=== PATIENT | female | born 1990 | race Caucasian/White ===

== ENCOUNTER 2016-07-06 19:07 | Emergency (ER) | payer MEDICAID ==
[2016-07-06] MEDS ORDERED: ONDANSETRON HCL INJ/PF 4 MG/2 ML SDV IV ONE (21:37)
[2016-07-06] MEDS ORDERED: NORMAL SALINE 1000 ML 1,000 ML IV ONE (21:38)
[2016-07-06 22:04] LABS: APPEARANCE,URINE SLIGHTLY-CLOUDY; BILIRUBIN,URINE NEGATIVE (NEGATIVE); GLUCOSE, URINE NEGATIVE (NEGATIVE); KETONES,URINE NEGATIVE (NEGATIVE); LEUKOCYTE ESTERASE,URINE TRACE (NEGATIVE); NITRITE,URINE NEGATIVE (NEGATIVE); PROTEIN,URINE NEGATIVE (NEGATIVE); URINE SPECIFIC GRAVITY 1.012; UROBILINOGEN,URINE NEGATIVE mg/dL (<2.0)
[2016-07-06 22:08] LABS: ABSOLUTE BASOPHILS # (AUTO) 0.1 10^3/uL (0.0-0.2); ABSOLUTE EOSINOPHILS # (AUTO) 0.1 10^3/uL (0.0-0.6); ABSOLUTE LYMPHOCYTES (AUTO) 2.6 10^3/uL (0.5-4.7); ABSOLUTE MONOCYTES (AUTO) 0.6 10^3/uL (0.1-1.4); ABSOLUTE NEUT (AUTO) 5.8 10^3/uL (1.7-8.2); BASOPHILS % (AUTO) 0.9 % (0-2); EOSINOPHILS % (AUTO) 1.2 % (0-6); HEMATOCRIT 36.8 % (36.0-47.0); HEMOGLOBIN 12.5 g/dL (12.0-15.5); HGB HCT DIFFERENCE 0.7; LYMPHOCYTES % (AUTO) 27.9 % (13-45); MEAN CORPUSCULAR HGB CONC 33.9 g/dL (32.0-36.0); MEAN CORPUSCULAR VOLUME 86 fl (80-97); MONOCYTES % (AUTO) 6.8 % (3-13); RED CELL DISTRIBUTION WIDTH 12.8 % (11.5-14.0); SEGMENTED NEUTROPHILS % (AUTO) 63.2 % (42-78); WHITE BLOOD COUNT 9.2 10^3/uL (4.0-10.5)
--- NOTE | 2016-07-06 22:13 | ER Document Report ---
ED GI/ - General Mode of Arrival: Ambulatory Information source: Patient TRAVEL OUTSIDE OF THE [place] IN LAST 30 DAYS: No - HPI Patient complains to provider of: Vomiting Onset: Other - 2 weeks ago Timing/Duration: Sudden, Persistent Quality of pain: Sharp - intermittent Context: Location: LLQ, RLQ Vaginal bleeding (Compared to normal period): None Menstrual period history: : 4 Para: 2 Abortions: 1 Associated symptoms: Nausea, Vomiting. denies: Dizzy, Fever <CHERYL MARSH - Last Filed: 07/06/16 22:08> <STEPHEN TRUONG - Last Filed: 07/07/16 00:18> - General Chief Complaint: Nausea/Vomiting Stated Complaint: NAUSEA AND VOMITING EARLY STAGES OF Time Seen by Provider: 07/06/16 21:37 Notes: Patient is a 26-year-old A1 female presenting to the emergency department concerned of persistent nausea and vomiting onset 2 weeks ago. Patient also admits to intermittent sharp lower abdominal pain and occasional shakiness, but denies dizziness, fever, or vaginal bleeding. Patient states that she was told that she is 6-7 weeks based on her last menstrual period (05/20/2016), and has history of one miscarriage in the past. (CHERYL MARSH) - Related Data Allergies/Adverse Reactions: amoxicillin Allergy (Verified 12/13/15 09:18) Past Medical History - General Information source: Patient - Social History Smoking Status: Never Smoker Cigarette use (# per day): No Frequency of alcohol use: None Drug Abuse: None Family History: Reviewed & Not Pertinent Patient has suicidal ideation: No Patient has homicidal ideation: No - Medical History Medical History: Negative Renal/ Medical History: Denies: Hx Peritoneal Dialysis Past Surgical History: Reports: Hx Gynecologic Surgery - Immunizations Hx Diphtheria, Pertussis, Tetanus Vaccination: Yes <CHERYL MARSH - Last Filed: 07/06/16 22:08> Review of Systems - Review of Systems Constitutional: No symptoms reported EENT: No symptoms reported Cardiovascular: No symptoms reported. denies: Dizziness Respiratory: No symptoms reported Gastrointestinal: See HPI, Abdominal pain - low, Nausea, Vomiting Genitourinary: No symptoms reported Female Genitourinary: See HPI, Last menstrual period - 05/20/2016, . denies: Vaginal bleeding Musculoskeletal: No symptoms reported Skin: No symptoms reported Hematologic/Lymphatic: No symptoms reported Neurological/Psychological: No symptoms reported -: Yes All other systems reviewed and negative <CHERYL MARSH - Last Filed: 07/06/16 22:08> Physical Exam <CHERYL MARSH - Last Filed: 07/06/16 22:08> <STEPHEN TRUONG - Last Filed: 07/07/16 00:18> - Vital signs Vitals: Temp Pulse Resp BP Pulse Ox 98.1 F 74 16 107/59 L 100 07/06/16 19:40 07/06/16 19:40 07/06/16 19:40 07/06/16 19:40 07/06/16 19:40 - Notes Notes: GENERAL: Alert, interacts well. No acute distress. HEAD: Normocephalic, atraumatic. EYES: Pupils equal, round, and reactive to light. Extraocular movements intact. ENT: Oral mucosa moist, tongue midline. NECK: Full range of motion. Supple. Trachea midline. LUNGS: Clear to auscultation bilaterally, no wheezes, rales, or rhonchi. No respiratory distress. HEART: Regular rate and rhythm. No murmurs, gallops, or rubs. ABDOMEN: Soft, non-tender. Distended uterus. Bowel sounds present in all 4 quadrants. EXTREMITIES: Moves all 4 extremities spontaneously. No edema. No cyanosis. NEUROLOGICAL: Alert and oriented x3. Normal speech. PSYCH: Normal affect, normal mood. SKIN: Warm, dry, normal turgor. No rashes or lesions noted. (CHERYL MARSH) Course - Laboratory Result Diagrams: 07/06/16 21:55 07/06/16 21:55 <CHERYL MARSH - Last Filed: 07/06/16 22:08> - Laboratory Result Diagrams: 07/06/16 21:55 07/06/16 22:02 <STEPHEN TRUONG - Last Filed: 07/07/16 00:18> - Re-evaluation Re-evalutation: 07/06/16 23:38 CBC unremarkable, test positive, urinalysis shows small blood and trace leukocyte esterase, 3+ bacteria and only 3 squamous epithelial cells, and will treat this with Macrobid. Transvaginal ultrasound shows 8 week 1 day intrauterine single gestation, heart rate is approximately 165 bpm, there is a subchorionic hemorrhage. No evidence of ectopic. Patient is being hydrated with a liter of normal saline, chemistries are pending, patient has been given Zofran for vomiting. CBC unremarkable, CMP shows slightly low CO2 at 20, hCG is positive with a quantitative hCG of 86,483. Urinalysis shows small blood and trace leukocyte esterase. This will be treated with Macrobid. 07/07/16 00:09 (STEPHEN TRUONG) - Vital Signs Vital signs: Temp Pulse Resp BP Pulse Ox 98.0 F 70 20 102/52 L 100 07/06/16 21:40 07/06/16 21:40 07/06/16 21:40 07/06/16 21:40 07/06/16 21:40 - Laboratory Laboratory results interpreted by me: 07/06/16 07/06/16 07/06/16 21:44 21:55 22:02 Chloride 109 H Carbon Dioxide 20 L Total Protein 5.6 L Albumin 3.2 L Serum HCG, Qual POSITIVE H Beta HCG, Quant 84447.00 H Urine Blood SMALL H Ur Leukocyte Esterase TRACE H Discharge <CHERYL MARSH - Last Filed: 07/06/16 22:08> <STEPHEN TRUONG - Last Filed: 07/07/16 00:18> - Discharge Clinical Impression: Nausea and vomiting during , Subchorionic hematoma in first trimester , Mild dehydration Condition: Stable Disposition: HOME, SELF-CARE Additional Instructions: You have a subchorionic hemorrhage, this is some bleeding around the baby. It slightly increases your risk of miscarriage. Do not have sex or put anything in your vagina until you have followed up with your ELECTRICAL APPLIANCE SERVICER. You have a slight urinary tract infection. We are treating this with an antibiotic called Macrobid. For your nausea and vomiting I have prescribed Phenergan which can make you somewhat sleepy as well as Zofran. Please use the Zofran sparingly. Prescriptions: Nitrofurantoin/Nitrofuran Mac [Macrobid 100 mg Capsule] 1 tab PO BID #20 capsule Ondansetron [Zofran Odt 4 mg Tablet] 1 - 2 tab PO Q4H PRN #15 tab.rapdis PRN Reason: For Nausea/Vomiting Promethazine HCl [Phenergan 25 mg Tablet] 25 - 50 mg PO ASDIR PRN #12 tablet PRN Reason: Scribe Attestation: 07/07/16 00:18 I personally performed the services described in the documentation, reviewed and edited the documentation which was dictated to the scribe in my presence, and it accurately records my words and actions. (STEPHEN TRUONG) Scribe Documentation - Scribe Written by Yuliya:: Yuliya Dickerson, 07/06/2016 2208 acting as scribe for :: Amado <CHERYL MARSH - Last Filed: 07/06/16 22:08>
--- NOTE | 2016-07-06 22:42 | RADIOLOGY REPORT (SQ) ---
EXAM DESCRIPTION: U/S OB TRANSVAG W/DOPPLER COMPLETED DATE/TIME: 07/06/2016 10:27 pm REASON FOR STUDY: sharp pains, COMPARISON: None. TECHNIQUE: Transvaginal static and realtime grayscale images acquired of the pelvis. Additional ralph cted spectral and color Doppler images recorded. All images stored on PACs. bHCG: Not available. LIMITATIONS: None. FINDINGS: FETUS: Living intrauterine . EGA: 8 weeks 1 day YOSSI: 02/14/2017 FHR: 165 beats per minute. SUBCHORIONIC BLEED: Yes SIZE OF BLEED: 5 mm UTERUS: No masses. No anomalies. CERVICAL LENGTH: 2.5 cm Closed. RIGHT ADNEXA: 1.4 cm cysts, otherwise Normal ovary with normal vascular flow. No adnexal free fluid. No adnexal masses. LEFT ADNEXA: Normal ovary with normal vascular flow. No adnexal free fluid. No adnexal masses. FREE FLUID: None. OTHER: No other significant finding. IMPRESSION: LIVING INTRAUTERINE . EGA 8 weeks 1 day Trimester of : First - 0 to 13 weeks. TECHNICAL DOCUMENTATION: JOB ID: [id number] [employer]- All Rights Reserved
[2016-07-06 23:20] LABS: ALANINE AMINOTRANSFERASE 22 U/L (9-52); ALBUMIN 3.2 g/dL (3.5-5.0); ALKALINE PHOSPHATASE 43 U/L (38-126); ANION GAP 9 (5-19); ASPARTATE AMINO TRANSFERASE 14 U/L (14-36); BILIRUBIN,DIRECT 0.2 mg/dL (0.0-0.4); BILIRUBIN,TOTAL 0.2 mg/dL (0.2-1.3); BLOOD UREA NITROGEN 12 mg/dL (7-20); CALCIUM 8.4 mg/dL (8.4-10.2); CARBON DIOXIDE 20 mmol/L (22-30); CHLORIDE 109 mmol/L (98-107); CREATININE RESULT 0.61 mg/dL (0.52-1.25); GLUCOSE 89 mg/dL (75-110); POTASSIUM 3.7 mmol/L (3.6-5.0); SODIUM 138.2 mmol/L (137-145); TOTAL PROTEIN 5.6 g/dL (6.3-8.2)
[2016-07-07 02:05] VITALS: BP 119/65
== END 2016-07-07 01:00 | disposition home or self-care (01) ==
LOC: ER 19:07
DX: O21.9 Vomiting of pregnancy, unspecified (principal); O99.281 Endocrine, nutritional and metabolic diseases complicating pregnancy, first trimester; E86.0 Dehydration; O43.891 Other placental disorders, first trimester; O26.891 Other specified pregnancy related conditions, first trimester; Z3A.01 Less than 8 weeks gestation of pregnancy; R10.31 Right lower quadrant pain; R10.32 Left lower quadrant pain; Z88.0 Allergy status to penicillin
CPT/HCPCS: 99284; 96361; 96374; 36415; 84702; 84703; 85025; 80053; 81001; 76817; 93976; J2405; J7030

== ENCOUNTER 2017-01-24 08:51 | Emergency (ER) | payer MEDICAID ==
--- NOTE | 2017-01-24 09:52 | ER Document Report ---
ED Respiratory Problem - General Chief Complaint: Cold Symptoms Stated Complaint: FLU LIKE SYMPTOMS Time Seen by Provider: 01/24/17 09:36 Notes: 26 yo 37 wk female c/o cough.cold symptoms x 3-4 days. no fever. nonproductive cough. pt has OB appointment tomorrow. denies any abdominal pain , vaginal bleeding or related concerns TRAVEL OUTSIDE OF THE [place] IN LAST 30 DAYS: No - HPI Patient complains to provider of: Cough Quality of pain: Achy Pain Level: 3 Context: . denies: Smoker Chest pain/discomfort: Tightness Sputum amount: None Associated symptoms: Chills, Congestion, Cough, Hoarseness, PND Similar symptoms previously: Yes - Related Data Allergies/Adverse Reactions: amoxicillin Allergy (Verified 01/24/17 08:54) Past Medical History - General Information source: Patient - Social History Smoking Status: Never Smoker Chew tobacco use (# tins/day): No Frequency of alcohol use: None Drug Abuse: None Lives with: Family Family History: Reviewed & Not Pertinent Patient has suicidal ideation: No Patient has homicidal ideation: No - Medical History Medical History: Negative Renal/ Medical History: Denies: Hx Peritoneal Dialysis Past Surgical History: Reports: Hx Gynecologic Surgery - Immunizations Hx Diphtheria, Pertussis, Tetanus Vaccination: Yes Review of Systems - Review of Systems Constitutional: No symptoms reported EENT: No symptoms reported Cardiovascular: No symptoms reported Respiratory: See HPI Gastrointestinal: No symptoms reported Genitourinary: No symptoms reported Female Genitourinary: No symptoms reported Musculoskeletal: No symptoms reported Skin: No symptoms reported Hematologic/Lymphatic: No symptoms reported Neurological/Psychological: No symptoms reported Physical Exam - Vital signs Vitals: Temp Pulse Resp BP Pulse Ox 98.6 F 102 H 14 125/74 98 01/24/17 08:56 01/24/17 08:56 01/24/17 08:56 01/24/17 08:56 01/24/17 08:56 Interpretation: Normal - General General appearance: Appears well, Alert In distress: None - HEENT Head: Normocephalic, Atraumatic Eyes: Normal Conjunctiva: Normal Pupils: PERRL Tympanic membrane: Other - dull bilat Mucous membranes: Normal, Moist Pharynx: Normal Neck: Supple. No: Lymphadenopathy - Respiratory Respiratory status: No respiratory distress Chest status: Nontender Breath sounds: Normal Chest palpation: Normal - Cardiovascular Rhythm: Regular Heart sounds: Normal auscultation Murmur: No - Abdominal Inspection: Normal Distension: No distension Bowel sounds: Normal Tenderness: Nontender Organomegaly: No organomegaly - Back Back: Normal, Nontender - Extremities General upper extremity: Normal inspection, Nontender, Normal color, Normal ROM , Normal temperature General lower extremity: Normal inspection, Nontender, Normal color, Normal ROM , Normal temperature, Normal weight bearing. No: Dot's sign - Neurological Neuro grossly intact: Yes Cognition: Normal Orientation: AAOx4 Marilyn Coma Scale Eye Opening: Spontaneous Marilyn Coma Scale Verbal: Oriented [place] Coma Scale Motor: Obeys Commands [place] Coma Scale Total: 15 Speech: Normal Motor strength normal: LUE, RUE, LLE, RLE Sensory: Normal - Psychological Associated symptoms: Normal affect, Normal mood - Skin Skin Temperature: Warm Skin Moisture: Dry Skin Color: Normal Course - Re-evaluation Re-evalutation: 01/24/17 09:55 I estimate there is low risk for acute coronary syndrome, respiratory failure, sepsis or meningitis. discharge home is reasonable. home care, f/u with OB, ED return precautions discussed. pt is agreeable with plan and stable for discharge - Vital Signs Vital signs: Temp Pulse Resp BP Pulse Ox 98.6 F 102 H 14 125/74 98 01/24/17 08:56 01/24/17 08:56 01/24/17 08:56 01/24/17 08:56 01/24/17 08:56 Discharge - Discharge Clinical Impression: URI (upper respiratory infection) Qualifiers: URI type: unspecified viral URI Qualified Code(s): J06.9 - Acute upper respiratory infection, unspecified; B97.89 - Other viral agents as the cause of diseases classified elsewhere; B97.89 - Other viral agents as the cause of diseases classified elsewhere Qualifiers: Weeks of gestation: 36 weeks Qualified Code(s): Z3A.36 - 36 weeks gestation of Condition: Stable Disposition: HOME, SELF-CARE Instructions: Acetaminophen, Upper Respiratory Illness ([facility]) Additional Instructions: Coug suppressant as prescribed may take OTC Robitussin or Robitussing DM rest and hydrate follow up with OB tomorrow as scheduled Prescriptions: Benzonatate [Tessalon Perles 100 mg Capsule] 200 mg PO Q8HP PRN #40 capsule PRN Reason:
[2017-01-24 10:06] VITALS: BP 111/66
== END 2017-01-24 10:06 | disposition home or self-care (01) ==
LOC: ER 08:51
DX: J06.9 Acute upper respiratory infection, unspecified (principal); B97.89 Other viral agents as the cause of diseases classified elsewhere; R05 Cough; Z3A.36 36 weeks gestation of pregnancy
CPT/HCPCS: 99283

== ENCOUNTER 2017-09-20 09:32 | Emergency (ER) | payer MEDICAID ==
[2017-09-20] MEDS ORDERED: IBUPROFEN 800 MG TABLET PO PRN (10:08)
[2017-09-20 10:52] LABS: APPEARANCE,URINE SLIGHTLY-CLOUDY; BILIRUBIN,URINE NEGATIVE (NEGATIVE); COLOR,URINE YELLOW; GLUCOSE, URINE NEGATIVE (NEGATIVE); KETONES,URINE NEGATIVE (NEGATIVE); LEUKOCYTE ESTERASE,URINE SMALL (NEGATIVE); NITRITE,URINE NEGATIVE (NEGATIVE); PROTEIN,URINE NEGATIVE (NEGATIVE); URINE SPECIFIC GRAVITY 1.019; UROBILINOGEN,URINE NEGATIVE mg/dL (<2.0)
[2017-09-20] MEDS ORDERED: KETOROLAC TROMETHAMINE INJ/PF 30 MG/1 ML SDV IV ONE (12:14)
[2017-09-20] MEDS ORDERED: FENTANYL CITRATE INJ/PF 100 MCG/2 ML AMPUL IV ONE ×2 (12:14→14:14)
--- NOTE | 2017-09-20 12:16 | ER Document Report ---
ED GI/ - General Chief Complaint: Flank Pain Stated Complaint: FLANK PAIN Time Seen by Provider: 09/20/17 10:02 Notes: 27-year-old female patient emergency department chief complaint right lower quadrant pain. Patient states she did not feel good last night. Today she began to have some pain in the right lower quadrant radiating to her right flank. Patient thinks that she has a UTI. Has had this happen before and was diagnosed with a kidney infection. Patient is 7 months . Has had a recent pelvic exam performed by her POLICE WORKER. Same sexual partner. No vaginal complaints. No prior history of ovarian cyst. Pain is intense. Throbbing in the right lower quadrant. TRAVEL OUTSIDE OF THE [place] IN LAST 30 DAYS: No - HPI Patient complains to provider of: Abdominal pain. No: Diarrhea, Hematuria, Pelvic pain, , Urinary retention, Vaginal bleeding, Vaginal discharge, Vaginal pain, Vomiting Onset: Yesterday Timing/Duration: Gradual, Worse Quality of pain: Achy, Throbbing Severity at maximum: Moderate Severity in ED: Moderate Pain Level: 3 - Related Data Allergies/Adverse Reactions: amoxicillin Allergy (Verified 09/20/17 09:43) Home Medications: Wellbutrin Past Medical History - General Information source: Patient - Social History Smoking Status: Never Smoker Chew tobacco use (# tins/day): No Frequency of alcohol use: None Drug Abuse: None Lives with: Spouse/Significant other Family History: Reviewed & Not Pertinent Patient has suicidal ideation: No Patient has homicidal ideation: No Renal/ Medical History: Denies: Hx Peritoneal Dialysis Past Surgical History: Reports: Hx Gynecologic Surgery - Immunizations Hx Diphtheria, Pertussis, Tetanus Vaccination: Yes Review of Systems - Review of Systems Notes: Constitutional: denies: Chills, Diaphoresis, Fever, Malaise, Weakness EENT: denies: Eye discharge, Blurred vision, Tearing, Double vision, Nose congestion, Nose discharge, Throat swelling, Mouth pain Cardiovascular: denies: Palpitations, Heart racing, Orthopnea, Dyspnea, Chest pain Respiratory: denies: Cough, Hurts to breathe, Wheezing, Shortness of breath Gastrointestinal: Consistent and positive for right lower quadrant pain radiating to the right flank, some nausea but no vomiting. No diarrhea. Genitourinary: denies: Burning, Dysuria, Discharge, Frequency, Flank pain, Hematuria Musculoskeletal: denies: Joint pain, Joint swelling, Muscle pain, Muscle stiffness, back pain Hematologic/Lymphatic: denies: Anemia, Easy bleeding, Easy bruising, Blood clots Neurological/Psychological: denies: Confusion, Dementia, Depression, Loss of consciousness Skin: No lesions, no masses, no skin breakdown, no abscesses Physical Exam - Vital signs Vitals: Temp Pulse Resp BP Pulse Ox 97.8 F 80 18 110/71 100 09/20/17 09:51 09/20/17 09:51 09/20/17 09:51 09/20/17 09:51 09/20/17 09:51 Interpretation: Normal - General General appearance: Appears well, Alert - HEENT Head: Normocephalic, Atraumatic Eyes: Normal Pupils: PERRL - Respiratory Respiratory status: No respiratory distress Chest status: Nontender Breath sounds: Normal Chest palpation: Normal - Cardiovascular Rhythm: Regular Heart sounds: Normal auscultation Murmur: No - Abdominal Inspection: Normal Distension: No distension Bowel sounds: Normal Tenderness: Tender, McBurney's point, Guarding. No: Rebound Organomegaly: No organomegaly - Back Back: Normal, Nontender - Extremities General upper extremity: Normal inspection, Nontender, Normal color, Normal ROM , Normal temperature General lower extremity: Normal inspection, Nontender, Normal color, Normal ROM , Normal temperature, Normal weight bearing. No: Dot's sign - Neurological Neuro grossly intact: Yes Cognition: Normal Orientation: AAOx4 [place] Coma Scale Eye Opening: Spontaneous [place] Coma Scale Verbal: Oriented [place] Coma Scale Motor: Obeys Commands Marilyn Coma Scale Total: 15 Speech: Normal Motor strength normal: LUE, RUE, LLE, RLE Sensory: Normal - Psychological Associated symptoms: Normal affect, Normal mood - Skin Skin Temperature: Warm Skin Moisture: Dry Skin Color: Normal Course - Re-evaluation Re-evalutation: 09/20/17 12:42 Patient has right lower quadrant tenderness with some mild guarding. No rebound. Cannot exclude appendicitis at this time. Discussed with the patient that she needs to be evaluated for appendicitis. She is comfortable with this plan. At this time I have also consulted with the surgeon. He would also like oral and IV contrast. 09/20/17 16:40 Patient does have an elevated WBC count. Appendix looks normal on CT scan but does have trace amount of free fluid in the pelvis. Will proceed with pelvic exam and ultrasound at this time. Patient requiring more pain medication at this time as well. 09/20/17 19:36 Ultrasound confirms there is a cyst. There are small amount of free fluid. There is good blood flow to the ovary. Time will recommend follow-up with OB/ PACE ANALYST. We will give her pain medication and discharge shortly. 09/20/17 19:37 Laboratory 09/20/17 09/20/17 09/20/17 10:25 14:00 14:00 WBC 12.3 H RBC 4.46 Hgb 12.6 Hct 37.2 MCV 83 MCH 28.2 MCHC 33.8 RDW 14.5 H Plt Count 244 Seg Neutrophils % 76.8 Lymphocytes % 16.8 Monocytes % 5.3 Eosinophils % 0.5 Basophils % 0.6 Absolute Neutrophils 9.5 H Absolute Lymphocytes 2.1 Absolute Monocytes 0.6 Absolute Eosinophils 0.1 Absolute Basophils 0.1 Sodium 141.0 Potassium 4.4 Chloride 107 Carbon Dioxide 23 Anion Gap 11 BUN 14 Creatinine 0.66 Est GFR ( Amer) > 60 Est GFR (Non-Af Amer) > 60 Glucose 83 Calcium 9.3 Total Bilirubin 0.7 Direct Bilirubin 0.3 Neonat Total Bilirubin Not Reportable Neonat Direct Bilirubin Not Reportable Neonat Indirect Bili Not Reportable AST 23 ALT 19 Alkaline Phosphatase 70 Total Protein 7.2 Albumin 4.2 Urine Color YELLOW Urine Appearance SLIGHTLY-CLOUDY Urine pH 6.0 Ur Specific Lavinia 1.019 Urine Protein NEGATIVE Urine Glucose (UA) NEGATIVE Urine Ketones NEGATIVE Urine Blood NEGATIVE Urine Nitrite NEGATIVE Urine Bilirubin NEGATIVE Urine Urobilinogen NEGATIVE Ur Leukocyte Esterase SMALL H Urine WBC (Auto) 3 Urine RBC (Auto) 2 Urine Bacteria (Auto) TRACE Squamous Epi Cells Auto 5 Urine Mucus (Auto) FEW Urine Ascorbic Acid NEGATIVE Urine HCG, Qual NEGATIVE Abdomen/Pelvis CT 09/20/17 00:00 IMPRESSION: There is a small amount of free fluid in the pelvis. No other findings are seen in the abdomen or pelvis. The appendix is normal. 09/20/17 20:18 Abdomen/Pelvis CT 09/20/17 00:00 IMPRESSION: There is a small amount of free fluid in the pelvis. No other findings are seen in the abdomen or pelvis. The appendix is normal. Transvaginal US 09/20/17 16:39 IMPRESSION: Small right ovarian cyst. The study is generally normal. The left ovary was not seen. - Vital Signs Vital signs: Temp Pulse Resp BP Pulse Ox 97.6 F 84 14 138/74 H 99 09/20/17 13:39 09/20/17 18:07 09/20/17 13:39 09/20/17 18:07 09/20/17 18:07 - Laboratory Result Diagrams: 09/20/17 14:00 09/20/17 14:00 Laboratory results interpreted by me: 09/20/17 09/20/17 10:25 14:00 WBC 12.3 H RDW 14.5 H Absolute Neutrophils 9.5 H Ur Leukocyte Esterase SMALL H Discharge - Discharge Clinical Impression: Right ovarian cyst Condition: Good Disposition: HOME, SELF-CARE Instructions: Observation for Appendicitis ([facility]), Ovarian Cyst ([facility]) Additional Instructions: In the event that symptoms are getting worse and no better, fever, chills, dizziness or other concerning symptoms please get seen by your chief order dispatcher or primary care doctor or return to the emergency department for repeat evaluation. Prescriptions: Ketorolac Tromethamine [Toradol 10 mg Tablet] 10 mg PO Q6HP PRN 3 Days #12 tablet PRN Reason: Forms: Treatment of Relative/Child Referrals: SHAR DRUMMOND MD [Primary Care Provider] - Follow up as needed
[2017-09-20 14:15] LABS: ABSOLUTE BASOPHILS # (AUTO) 0.1 10^3/uL (0.0-0.2); ABSOLUTE EOSINOPHILS # (AUTO) 0.1 10^3/uL (0.0-0.6); ABSOLUTE LYMPHOCYTES (AUTO) 2.1 10^3/uL (0.5-4.7); ABSOLUTE MONOCYTES (AUTO) 0.6 10^3/uL (0.1-1.4); ABSOLUTE NEUT (AUTO) 9.5 10^3/uL (1.7-8.2); BASOPHILS % (AUTO) 0.6 % (0-2); EOSINOPHILS % (AUTO) 0.5 % (0-6); HEMATOCRIT 37.2 % (36.0-47.0); HEMOGLOBIN 12.6 g/dL (12.0-15.5); LYMPHOCYTES % (AUTO) 16.8 % (13-45); MEAN CORPUSCULAR HEMOGLOBIN 28.2 pg (27.0-33.4); MEAN CORPUSCULAR HGB CONC 33.8 g/dL (32.0-36.0); MEAN CORPUSCULAR VOLUME 83 fl (80-97); MONOCYTES % (AUTO) 5.3 % (3-13); PLATELET COUNT 244 10^3/uL (150-450); RED BLOOD COUNT 4.46 10^6/uL (3.72-5.28); RED CELL DISTRIBUTION WIDTH 14.5 % (11.5-14.0); SEGMENTED NEUTROPHILS % (AUTO) 76.8 % (42-78); TOTAL CELLS COUNTED % (AUTO) 100 %; WHITE BLOOD COUNT 12.3 10^3/uL (4.0-10.5)
[2017-09-20] MEDS ORDERED: NORMAL SALINE 1000 ML 1,000 ML IV ONE (14:30)
[2017-09-20 14:32] LABS: ALANINE AMINOTRANSFERASE 19 U/L (9-52); ALBUMIN 4.2 g/dL (3.5-5.0); ALKALINE PHOSPHATASE 70 U/L (38-126); ANION GAP 11 (5-19); ASPARTATE AMINO TRANSFERASE 23 U/L (14-36); BILIRUBIN,DIRECT 0.3 mg/dL (0.0-0.4); BILIRUBIN,TOTAL 0.7 mg/dL (0.2-1.3); BLOOD UREA NITROGEN 14 mg/dL (7-20); CALCIUM 9.3 mg/dL (8.4-10.2); CARBON DIOXIDE 23 mmol/L (22-30); CHLORIDE 107 mmol/L (98-107); GLUCOSE 83 mg/dL (75-110); POTASSIUM 4.4 mmol/L (3.6-5.0); TOTAL PROTEIN 7.2 g/dL (6.3-8.2)
--- NOTE | 2017-09-20 16:07 | RADIOLOGY REPORT (SQ) ---
EXAM DESCRIPTION: CT ABD/PELVIS WITH IV ORAL COMPLETED DATE/TIME: 09/20/2017 3:47 pm REASON FOR STUDY: right lower quadrant pain COMPARISON: None. TECHNIQUE: CT scan of the abdomen and pelvis performed using helical scanning technique with dynamic intravenous contrast injection. Oral contrast. Images reviewed with lung, soft tissue, and bone win dows. Reconstructed coronal and sagittal MPR images reviewed. Delayed images for evaluation of the ur inary system also acquired. All images stored on PACS. All CT scanners at this facility use dose modulation, iterative reconstruction, and/or weight based d osing when appropriate to reduce radiation dose to as low as reasonably achievable (ALARA). [facility]: Dose Right [facility]: CareDose [facility]: Dose Right [facility]: Teradose 4D [facility]: TubeMogul CONTRAST TYPE AND DOSE: contrast/concentration: Isovue 350.00 mg/ml; Total Contrast Delivered: 64.0 ml; Total Saline Delivered: 65.0 ml RENAL FUNCTION: None required. The patient is less than 50 years old. RADIATION DOSE: CT Rad equipment meets quality standard of care and radiation dose reduction techniq ues were employed. CTDIvol: 5.4 - 6.8 mGy. DLP: 988 mGy-cm.. LIMITATIONS: None. FINDINGS: LOWER CHEST: No significant findings. No nodules or infiltrates. LIVER: Normal size. No masses. No dilated ducts. SPLEEN: Normal size. No focal lesions. PANCREAS: No masses. No significant calcifications. No adjacent inflammation or peripancreatic fluid collections. Pancreatic duct not dilated. GALLBLADDER: No identified stones by CT criteria. No inflammatory changes to suggest cholecystitis. ADRENAL GLANDS: No significant masses or asymmetry. RIGHT KIDNEY AND URETER: No solid masses. No significant calcifications. No hydronephrosis or hyd roureter. LEFT KIDNEY AND URETER: No solid masses. No significant calcifications. No hydronephrosis or hydr oureter. AORTA AND VESSELS: No aneurysm. No dissection. Renal arteries, SMA, celiac without stenosis. RETROPERITONEUM: No retroperitoneal adenopathy, hemorrhage or masses. BOWEL AND PERITONEAL CAVITY: There is no bowel obstruction. Contrast is in the colon. No bowel mass . APPENDIX: Normal. PELVIS: An IUD is present in uterus. There is a small amount of free fluid in the pelvis. ABDOMINAL WALL: No masses. No hernias. BONES: No significant or acute findings. OTHER: No other significant finding. IMPRESSION: There is a small amount of free fluid in the pelvis. No other findings are seen in the abdomen or pelvis. The appendix is normal. TECHNICAL DOCUMENTATION: JOB ID: [id number] Quality ID # [id number]: Final reports with documentation of one or more dose reduction techniques (e.g., Au tomated exposure control, adjustment of the mA and/or kV according to patient size, use of iterative reconstruction technique) 2010 [employer]- All Rights Reserved Reading location - IP/workstation name: [email or web address]
[2017-09-20] MEDS ORDERED: HYDROMORPHONE HCL INJ/PF 2 MG/ML AMPULE IV ONE (16:38)
[2017-09-20] MEDS ORDERED: ONDANSETRON ODT 4 MG TAB (6 TAB/ER DISP) PO PRN (19:39)
[2017-09-20] MEDS ORDERED: HYDROCODONE/ACETAMINOPHEN 5-325 MG (6 TAB/ER DISP) PO PRN (19:39)
--- NOTE | 2017-09-20 20:13 | RADIOLOGY REPORT (SQ) ---
EXAM DESCRIPTION: U/S NON OB PEL TV W/DOPPLER COMPLETED DATE/TIME: 09/20/2017 7:15 pm REASON FOR STUDY: rlq pain COMPARISON: None. TECHNIQUE: Dynamic and static grayscale images acquired of the pelvis via transvaginal approach and recorded on PACS. Additional selected color Doppler and spectral images recorded. LIMITATIONS: None. FINDINGS: UTERUS: Contour normal. No mass. ENDOMETRIAL STRIPE: No focal or generalized thickening. No masses. CERVIX: 3 cm. No nabothian cysts. RIGHT OVARY AND DOPPLER: Normal size. No worrisome masses. Normal arterial vascular flow without evid ence for torsion. 2.8 x 2 x 2.6 cm cyst. LEFT OVARY AND DOPPLER: Ovary not seen. FREE FLUID: There is some free fluid in the posterior cul-de-sac. OTHER: No other significant finding. MEASUREMENTS: UTERUS: 8.5 x 4.5 x 5.1 cm. ENDOMETRIAL STRIPE: 4 mm. RIGHT OVARY: 3.7 x 2.8 x 3.5 cm. LEFT OVARY: Ovary not seen. IMPRESSION: Small right ovarian cyst. The study is generally normal. The left ovary was not seen. TECHNICAL DOCUMENTATION: JOB ID: [id number] [employer]- All Rights Reserved Rev-06/29 Reading location - IP/workstation name: [email or web address]
[2017-09-20 20:31] VITALS: BP 125/69
[2017-09-20 22:25] LABS: CHLAM PCR NOT DETECTED (NOT DETECT); GON PCR NOT DETECTED (NOT DETECT)
== END 2017-09-20 20:28 | disposition home or self-care (01) ==
LOC: ER 09:32
DX: N83.201 Unspecified ovarian cyst, right side (principal); R10.31 Right lower quadrant pain; Z88.0 Allergy status to penicillin
CPT/HCPCS: 96376; 99284; 96361; 96374; 96375; 36415; 85025; 81025; 80053; 81001; 87491; 87591; 76830; 93976; 74177; J3490; J3010; J1885; J1170; J7030